=== PATIENT | male | born 1955 | race Caucasian/White ===

== ENCOUNTER 2020-02-20 05:28 | Outpatient (RCR) | payer MEDICARE, OTHER ==
[~2020-02-20] VITALS: Ht 175.3 cm; Wt 97.1 kg
[2020-02-20 09:02] VITALS: BP 132/89
[2020-02-20 09:51] LABS: BASOPHILS % (AUTO) 1 % (0-10); EOSINOPHILS # (AUTO) 0.2 10^3/uL (0.0-0.3); EOSINOPHILS % (AUTO) 3 % (0-10); HEMATOCRIT 42 % (40-54); HEMOGLOBIN 14.5 g/dL (13.3-17.7); LYMPHOCYTES # (AUTO) 1.1 10^3/uL (1.0-4.0); LYMPHOCYTES % (AUTO) 18 % (12-44); MEAN CORPUSCULAR HEMOGLOBIN 31 pg (25-34); MEAN CORPUSCULAR HGB CONC 35 g/dL (32-36); MEAN CORPUSCULAR VOLUME 89 fL (80-99); MEAN PLATELET VOLUME 10.5 fL (9.0-12.2); MONOCYTES # (AUTO) 0.5 10^3/uL (0.0-1.0); MONOCYTES % (AUTO) 8 % (0-12); NEUTROPHILS # (AUTO) 4.2 10^3/uL (1.8-7.8); NEUTROPHILS % (AUTO) 70 % (42-75); PLATELET COUNT 190 10^3/uL (130-400)
[2020-02-20 10:03] LABS: BUN/CREATININE RATIO 21; CALCIUM 9.5 MG/DL (8.5-10.1); CARBON DIOXIDE 27 MMOL/L (21-32); CHLORIDE 105 MMOL/L (98-107); CREATININE SERUM 0.81 MG/DL (0.60-1.30); GFR ESTIMATED > 60; GLUCOSE 104 MG/DL (70-105); POTASSIUM 3.6 MMOL/L (3.6-5.0); SODIUM 141 MMOL/L (135-145)
[2020-02-20] MEDS ORDERED: ATOR40TA70 PO (10:12)
[2020-02-20] MEDS ORDERED: METO-333 PO (10:12)
[2020-02-20] MEDS ORDERED: HYDR12.56 PO (10:12)
[2020-02-20] MEDS ORDERED: CLN.1T PO (10:12)
[2020-02-20] MEDS ORDERED: CLOP75TA28 PO (10:12)
[2020-02-20] MEDS ORDERED: LEVO50CA4 PO (10:12)
[2020-02-20] MEDS ORDERED: LOSA50TA63 PO (10:12)
[2020-02-20] MEDS ORDERED: DILT240C53 PO (10:12)
[2020-02-20] MEDS ORDERED: ASPI-999 PO (10:12)
== END 2020-02-20 10:10 | disposition home or self-care (01) ==
LOC: PREOP 05:28
PROVIDERS: ATTEND Otolaryngology Otolaryngology/Facial Plastic Surgery
DX: Z01.818 Encounter for other preprocedural examination (principal); C44.319 Basal cell carcinoma of skin of other parts of face
CPT/HCPCS: 80048; 85025; 87081; 93005; U0002; 36415; 87635

== ENCOUNTER 2020-02-22 06:11 | Day surgery (SDC) | payer MEDICARE, OTHER ==
[2020-02-22] VITALS (10 sets, daily range): BP systolic 91–121; BP diastolic 62–87
[~2020-02-22] VITALS: Ht 175 cm; Wt 97.1 kg
[~2020-02-22 06:11] MED LIST: ASPI-999 PO; ATOR40TA70 PO; CLN.1T PO; CLOP75TA28 PO; DILT240C53 PO; HYDR12.56 PO; LEVO50CA4 PO; LOSA50TA63 PO; METO-333 PO
[2020-02-22] MEDS: LACTATED RINGERS 1,000 ML IV PRN ×2 (06:44→08:40)
[2020-02-22] MEDS ORDERED: LIDOCAINE PF 2% 5 ML (XYLOCAINE) VIAL ONE (06:57)
[2020-02-22] MEDS ORDERED: MIDAZOLAM 2 MG/2 ML (VERSED) VIAL ONE (06:57)
[2020-02-22] MEDS ORDERED: ONDANSETRON 4 MG/2 ML (SDV) Z0FRAN ONE (06:57)
[2020-02-22] MEDS ORDERED: proPOfol 200 MG/20 ML (DIPRIVAN) VIAL IV ONE (06:57)
[2020-02-22] MEDS ORDERED: SEVOFLURANE (ULTANE) 15 ML INHAL SOLN ONE ×3 (06:57→08:16)
[2020-02-22] MEDS ORDERED: fentaNYL INJECTION 100 MCG/2 ML AMP ONE (06:57)
--- NOTE | 2020-02-22 06:58 | Progress Note-Pre Operative ---
Pre-Operative Progress Note H&P Reviewed The H&P was reviewed, patient examined and no changes noted. Date Seen by Provider: Feb 22, 2020 Time Seen by Provider: 06:30 Date H&P Reviewed: Feb 22, 2020 Time H&P Reviewed: 06:30 Pre-Operative Diagnosis: REmoval of Right Facial Lesions TRIP KWOK MD Feb 22, 2020 06:58
[2020-02-22] MEDS ORDERED: TRIAMCINOLONE ACET (KENALOG-40) 40 MG/ML 1 ML VIAL IJ ONE (07:00)
[2020-02-22] MEDS ORDERED: MUPIROCIN 2% OINT 22 GM (BACTROBAN) TUBE ONE (07:11)
[2020-02-22] MEDS ORDERED: LIDOCAINE/EPI 1%-1:100,000 (XYLOCAINE) 50 ML ONE (07:11)
--- NOTE | 2020-02-22 08:17 | Progress Note-Post Operative ---
Post-Operative Progess Note Surgeon (s)/Boiling Tub Operator (s) Surgeon TRIP KWOK MD Boiling Tub Operator n/a Pre-Operative Diagnosis REmoval of Right Facial Lesions Post-Operative Diagnosis same Post-Op Procedure Note Date of Procedure: Feb 22, 2020 Name of Procedure Performed: Excision of Right Upper Lip Mass, Reconstruction with Advancement Flap, Excision of Right Lateral Cheek Lesion with Intermediate Repair Description & Findings Description and Findings: n/a Anesthesia Type lma Estimated Blood Loss minimal Packing none. Specimen(s) collected/removed right upp lip and right lateral cheek lesions TRIP KWOK MD Feb 22, 2020 08:17
[2020-02-22] MEDS ORDERED: ACETAMINOPHEN 325 MG TABLET PO PRN (08:30)
[2020-02-22] MEDS ORDERED: HYDROcodone/APAP 5 MG/325 MG (LORTAB) TAB PO PRN (08:30)
--- NOTE | 2020-02-22 08:33 | Anesthesia-General Post-Op ---
General Patient Condition Mental Status/LOC: Same as Preop Cardiovascular: Satisfactory Nausea/Vomiting: Absent Respiratory: Satisfactory Pain: Controlled Complications: Absent Post Op Complications Complications None Follow Up Care/Instructions Patient Instructions None needed. Anesthesia/Patient Condition Patient Condition Patient is doing well, no complaints, stable vital signs, no apparent adverse anesthesia problems. No complications reported per nursing. MARIAN VERAS CRNA Feb 22, 2020 08:33
[2020-02-22] MEDS ORDERED: fentaNYL INJECTION 100 MCG/2 ML AMP IVP ONE (08:45)
[2020-02-22] MEDS ORDERED: morphine INJ 10 MG/ML 1ML (SYR OR VIAL) IVP ONE (08:45)
[2020-02-22] MEDS ORDERED: ONDANSETRON 4 MG/2 ML (SDV) Z0FRAN IVP PRN (08:45)
[2020-02-22] MEDS ORDERED: ACHD5005 PO (09:33)
[2020-02-22] MEDS ORDERED: CEPH-507 PO (09:33)
== END 2020-02-22 10:42 ==
LOC: SDC 06:11
PROVIDERS: ATTEND Otolaryngology Otolaryngology/Facial Plastic Surgery
DX: C44.01 Basal cell carcinoma of skin of lip (principal); C44.319 Basal cell carcinoma of skin of other parts of face; I10 Essential (primary) hypertension; I25.10 Atherosclerotic heart disease of native coronary artery without angina pectoris; E66.9 Obesity, unspecified; Z68.31 Body mass index [BMI] 31.0-31.9, adult; Z79.899 Other long term (current) drug therapy; Z88.5 Allergy status to narcotic agent
CPT/HCPCS: 88305; 88331

== ENCOUNTER 2021-03-26 05:37 | Outpatient (CLI) | payer MEDICARE, OTHER ==
[~2021-03-26] VITALS: Ht 172.7 cm; Wt 97.1 kg
[~2021-03-26 05:37] MED LIST changes: +ACHD5005 PO; +CEPH-507 PO
== END 2021-03-30 12:56 | disposition home or self-care (01) ==
LOC: PREOP 05:37
PROVIDERS: ATTEND Otolaryngology Otolaryngology/Facial Plastic Surgery
DX: Z01.818 Encounter for other preprocedural examination (principal)

== ENCOUNTER 2021-04-02 05:54 | Day surgery (SDC) | payer MEDICARE, OTHER ==
[2021-04-02] VITALS (11 sets, daily range): BP systolic 106–139; BP diastolic 64–91
[~2021-04-02] VITALS: Ht 172 cm; Wt 97.1 kg
[2021-04-02] MEDS ORDERED: LACTATED RINGERS 1,000 ML IV PRN (06:00)
[2021-04-02] MEDS ORDERED: fentaNYL INJ 100 MCG/2 ML AMP ONE (06:56)
--- NOTE | 2021-04-02 06:57 | Progress Note-Pre Operative ---
Pre-Operative Progress Note H&P Reviewed The H&P was reviewed, patient examined and no changes noted. Date Seen by Provider: Apr 02, 2021 Time Seen by Provider: 06:30 Date H&P Reviewed: Apr 02, 2021 Time H&P Reviewed: :30 Pre-Operative Diagnosis: Nasal Lesion, Right Cheek Lesion TRIP KWOK MD Apr 02, 2021 06:57
[2021-04-02] MEDS ORDERED: TRIAMCINOLONE ACET (KENALOG-40) 40 MG/ML 1 ML VIAL IJ ONE (07:00)
[2021-04-02 07:21] LABS: BASOPHILS % (AUTO) 0 % (0-10); EOSINOPHILS # (AUTO) 0.2 10^3/uL (0.0-0.3); EOSINOPHILS % (AUTO) 3 % (0-10); HEMATOCRIT 42 % (40-54); HEMOGLOBIN 14.4 g/dL (13.3-17.7); LYMPHOCYTES # (AUTO) 1.2 10^3/uL (1.0-4.0); LYMPHOCYTES % (AUTO) 23 % (12-44); MEAN CORPUSCULAR HEMOGLOBIN 31 pg (25-34); MEAN CORPUSCULAR HGB CONC 35 g/dL (32-36); MEAN CORPUSCULAR VOLUME 90 fL (80-99); MEAN PLATELET VOLUME 10.1 fL (9.0-12.2); MONOCYTES # (AUTO) 0.6 10^3/uL (0.0-1.0); MONOCYTES % (AUTO) 11 % (0-12); NEUTROPHILS # (AUTO) 3.2 10^3/uL (1.8-7.8); NEUTROPHILS % (AUTO) 62 % (42-75); PLATELET COUNT 156 10^3/uL (130-400); WHITE BLOOD COUNT 5.2 10^3/uL (4.3-11.0)
[2021-04-02] MEDS ORDERED: MUPIROCIN 2% OINT 22 GM (BACTROBAN) TUBE ONE (07:38)
[2021-04-02] MEDS ORDERED: LIDOCAINE/EPI 2% 1:100,00 (XYLOCAINE) 20 ML VIAL ONE (07:38)
[2021-04-02 07:49] LABS: CALCIUM 9.1 MG/DL (8.5-10.1); CREATININE SERUM 0.79 MG/DL (0.60-1.30); POTASSIUM 3.7 MMOL/L (3.6-5.0)
[2021-04-02] MEDS ORDERED: proPOfol 200 MG/20 ML (DIPRIVAN) VIAL IV ONE (08:31)
[2021-04-02] MEDS ORDERED: PROPOFOL INJECTION 0 ML IV ONE (08:31)
[2021-04-02] MEDS ORDERED: ONDANSETRON 4 MG/2 ML (SDV) Z0FRAN ONE (08:31)
[2021-04-02] MEDS ORDERED: LIDOCAINE PF 2% 5 ML (XYLOCAINE) VIAL ONE (08:31)
--- NOTE | 2021-04-02 08:43 | Progress Note-Post Operative ---
Post-Operative Progess Note Surgeon (s)/Family Resource Management Professor (s) Surgeon TRIP KWOK MD Family Resource Management Professor n/a Pre-Operative Diagnosis Nasal Lesion, Right Cheek Lesion Post-Operative Diagnosis same Post-Op Procedure Note Date of Procedure: Apr 02, 2021 Name of Procedure Performed: Excision of Right Nasal Dorsum Lesion with REconstruction with Local Transposition Flap, Excision of Right Cheek Lesion with INtermediate Repair Description & Findings Description and Findings: n/a Anesthesia Type Gen LMA Estimated Blood Loss minimal Packing none. Specimen(s) collected/removed right nasal dorsum lesion to path for a frozen section right cheek lesion to path for frozen section TRIP KWOK MD Apr 02, 2021 08:43
[2021-04-02] MEDS ORDERED: BSS 15 ML ONE (08:44)
[2021-04-02] MEDS ORDERED: ACETAMINOPHEN 325 MG TABLET PO PRN (08:45)
[2021-04-02] MEDS ORDERED: HYDROcodone/APAP 5 MG/325 MG (LORTAB) TAB PO PRN (08:45)
[2021-04-02] MEDS ORDERED: SEVOFLURANE (ULTANE) 15 ML INHAL SOLN ONE (08:59)
--- NOTE | 2021-04-02 09:19 | Anesthesia-General Post-Op ---
General Patient Condition Mental Status/LOC: Same as Preop Cardiovascular: Satisfactory Nausea/Vomiting: Absent Respiratory: Satisfactory Pain: Controlled Complications: Absent Post Op Complications Complications None Follow Up Care/Instructions Patient Instructions None needed. Anesthesia/Patient Condition Patient Condition Patient is doing well, no complaints, stable vital signs, no apparent adverse anesthesia problems. No complications reported per nursing. CLAUDINE WETZEL CRNA Apr 02, 2021 09:19
[2021-04-02] MEDS ORDERED: morphine INJ 10 MG/ML 1ML (SYR OR VIAL) IVP ONE (09:30)
[2021-04-02] MEDS ORDERED: ONDANSETRON 4 MG/2 ML (SDV) Z0FRAN IVP PRN (09:30)
[2021-04-02] MEDS ORDERED: CEPH500T PO (10:25)
[2021-04-02] MEDS ORDERED: ACHD5005 PO (10:25)
== END 2021-04-02 11:10 ==
LOC: SDC 05:54
PROVIDERS: ATTEND Otolaryngology Otolaryngology/Facial Plastic Surgery
DX: C44.311 Basal cell carcinoma of skin of nose (principal); L57.0 Actinic keratosis; I10 Essential (primary) hypertension; I25.10 Atherosclerotic heart disease of native coronary artery without angina pectoris; E07.9 Disorder of thyroid, unspecified; Z79.899 Other long term (current) drug therapy; Z95.1 Presence of aortocoronary bypass graft
CPT/HCPCS: 36415; 80048; 85025; 87081